=== PATIENT | male | born 1985 | race Caucasian/White ===

== ENCOUNTER 2018-07-30 18:52 | Emergency (ER) | END 2018-07-30 23:11 | disposition home or self-care (01) ==

== ENCOUNTER 2018-08-13 21:58 | Emergency (ER) | END 2018-08-14 00:35 | disposition home or self-care (01) ==

== ENCOUNTER 2018-08-27 22:04 | Emergency (ER) | END 2018-08-28 02:30 | disposition home or self-care (01) ==

== ENCOUNTER 2018-10-12 11:34 | Emergency (ER) | END 2018-10-12 13:36 | disposition home or self-care (01) ==

== ENCOUNTER 2019-05-22 00:10 | Emergency (ER) | payer SELFPAY ==
[~2019-05-22 00:10] MED LIST: DOXY100C42 PO; DOXY100T20 PO; IBUP-1542 PO; IBUP-1561 PO; NAPR-688 PO; NAPR-985 PO; NO MEDS
== END 2019-05-22 00:30 | disposition left against medical advice (07) ==
LOC: E/R 00:10
DX: Z53.21 Procedure and treatment not carried out due to patient leaving prior to being seen by health care provider (principal)

== ENCOUNTER 2019-08-06 11:40 | Emergency (ER) | payer MEDICAID, OTHER ==
[~2019-08-06] VITALS: Ht 165.1 cm; Wt 90.0 kg
[~2019-08-06 11:40] MED LIST changes: +CIPR500T4 PO
[2019-08-06 11:45] VITALS: BP 142/86; PULSE 83; RESP 18; Ht 165.1 cm; Wt 90.0 kg
== END 2019-08-06 14:55 | disposition home or self-care (01) ==
LOC: FTE 11:40
DX: R30.0 Dysuria (principal)
CPT/HCPCS: 81003; 87086; 87591; Z7502; 99283

== ENCOUNTER 2019-08-16 16:27 | Emergency (ER) | payer MEDICAID ==
[~2019-08-16] VITALS: Wt 86.4 kg
[~2019-08-16 16:27] MED LIST changes: +CARB-155 BOTH EARS; +DOXY-214 PO; -DOXY100T20 PO; +NPH10OT BOTH EARS; +PHEN-537 PO
[2019-08-16 16:31] VITALS: BP 132/80; PULSE 99; RESP 20
[2019-08-16] MEDS ORDERED: AZITHROMYCIN 500 MG TAB PO ONE (18:30)
== END 2019-08-16 19:10 | disposition home or self-care (01) ==
LOC: FTE 16:27
DX: A74.9 Chlamydial infection, unspecified (principal)
CPT/HCPCS: Z7502; Z7610; 99283

== ENCOUNTER 2019-08-21 18:44 | Emergency (ER) | payer SELFPAY | END 2019-08-21 19:25 | disposition left against medical advice (07) | LOC: E/R 18:44 | DX: Z53.21 Procedure and treatment not carried out due to patient leaving prior to being seen by health care provider (principal) ==

== ENCOUNTER 2019-08-26 23:49 | Emergency (ER) | payer MEDICAID ==
[~2019-08-26] VITALS: Ht 167.6 cm; Wt 93.5 kg
[2019-08-27] VITALS: BP 138/79; PULSE 66; RESP 18; Ht 167.6 cm; Wt 93.5 kg
[2019-08-27] MEDS ORDERED: KETOROLAC 30 MG INJ IM STA (00:35)
== END 2019-08-27 01:51 | disposition home or self-care (01) ==
LOC: FTE 23:49
DX: N50.819 Testicular pain, unspecified (principal)
CPT/HCPCS: 76870; 81003; 96372; J1885; Z7502